=== PATIENT | female | born 1990 | race Caucasian/White ===

== ENCOUNTER 2019-12-18 17:57 | Emergency (ER) | payer OTHER, SELFPAY ==
[2018-09-29 09:57] VITALS: BMI 26.1
[2019-12-18 17:59] VITALS: BP 125/68; PULSE 94; RESP 16; TEMP 36.9; O2SAT 99; BMI 25.7
--- NOTE | 2019-12-18 18:09 | RAD_ITS ---
STUDY: X-RAY CHEST REASON FOR EXAM: Female, 29 years old. Diarrhea, low fever, cough. TECHNIQUE: Single frontal view of the chest. COMPARISON: None. FINDINGS: The lungs are clear and expanded. There is no demonstrated pleural abnormality. Normal size heart. Normal mediastinum and juan. Normal visualized pulmonary arteries. Normal visualized aortic arch and descending thoracic aorta. Normal visualized thoracic spine. Normal visualized ribs, clavicles, and shoulders. There is no demonstrated abnormality of the visualized soft tissue structures of the upper abdomen. RAD/Chest 1 View (Portable) IMPRESSION: Normal x-ray examination of the chest. Electronically Signed: Paulino Villanueva MD at 19:22 EDT Tel , Service support ,
--- NOTE | 2019-12-18 18:19 | ED.DCSUM_ITS ---
History of Present Illness Chief Complaint: Abd Pain Informant: Patient Onset: Today Context: Gradual Onset Timing: Continuous Current Severity: Moderate Maximum Severity: Moderate Narrative: The patient is an otherwise healthy 29-year-old female that presents to the emergency department due to COVID concern. Patient states that she woke this morning. She had fever and chills. She states she is had a scant cough. She has had some abdominal cramping and loose watery diarrhea. She states she is had about 5 episodes of nonbloody diarrhea. Patient is otherwise healthy. She is no history of immunosuppression. She is otherwise been in her normal state of health. Prior similar symptoms: No Recent Illness/Hospitalization: No Past Medical History - Allergies and Home Meds Allergies/Adverse Reactions: Allergies No Known Allergies Allergy (Unverified 12/18/19 18:03) Primary Care Physician: Care Physician,No Primary [Primary Care Provider] - Prior records reviewed: Yes Past Medical History: None Surgical History: no surgical history Smoking Status: Never smoker Review of Systems General: Reports: Fever, Malaise. Denies: Chills, Sweats Eyes: Denies: Visual changes - bilaterally, Diplopia ENT: Denies: Rhinorrhea, Sore throat Cardiovascular: Denies: Chest pain, Palpitations Respiratory: Denies: Dyspnea, Cough, Dyspnea on exertion Gastrointestinal: Reports: Nausea, Diarrhea. Denies: Abdominal pain, Vomiting, Melena, Hematochezia Genitourinary: Denies: Dysuria, Hematuria, Frequency Musculoskeletal: Denies: Back pain, Extremity Pain Skin: Denies: Rash, Wounds Neurological: Denies: Headache, Weakness, Numbness Physical Exam Vital Signs/Narrative: Vital Signs Temp Pulse Resp BP Pulse Ox 12/18/19 17:59 98.5 F 94 16 125/68 H 99 Inital Vital Signs reviewed: Yes General: Well nourished, Well developed, No Acute Distress Head: Normocephalic, Atraumatic Eyes: Perrl, EOMI ENT: Moist mucous membranes, No rhinorrhea Neck: Supple, Nontender Cardiovascular: Regular rate, Regular rhythm, No murmurs Respiratory: No distress, CTA bilaterally, Chest nontender Abdomen: Soft, Nontender, Nondistended, Normal bowel sounds Back: Nontender, Normal Inspection Extremities: Nontender, No edema Skin: Normal color, No rash Neurological: Alert, Oriented x3, Cranial nerves II-XII grossly intact, Normal Strength, Normal Sensation Psychological: Normal affect, Normal Mood Diagnostic/Tx/Re-eval Clinical Impression(s) from Imaging Studies Chest X-Ray 12/18/19 18:09 IMPRESSION: Normal x-ray examination of the chest. Electronically Signed: Paulino Villanueva MD at 19:22 EDT Tel , Service support , Abnormal Lab Results 12/18/19 12/18/19 12/18/19 18:30 18:30 18:30 WBC 5.6 RBC 4.93 Hgb 14.2 Hct 43.0 MCV 87.2 MCH 28.8 MCHC 33.0 RDW Std Deviation 40.9 RDW Coeff of Esther 13.1 Plt Count 176 MPV 9.5 Immature Gran % (Auto) 0.400 Neut % (Auto) 91.9 H Lymph % (Auto) 4.3 L [place] % (Auto) 2.5 Eos % (Auto) 0.5 Baso % (Auto) 0.4 Absolute Neuts (auto) 5.2 Absolute Lymphs (auto) 0.24 L Nucleated RBC % 0 Differential Comment SCANNED Sodium 136 Potassium 3.2 L Chloride 105 Carbon Dioxide 22.0 Anion Gap 9 BUN 18 Creatinine 1.22 H Estim Creat Clear Calc 61.22 Est GFR (MDRD) Af Amer 67 Est GFR (MDRD) Non-Af 55 L BUN/Creatinine Ratio 14.8 Glucose 105 Calcium 8.5 Total Bilirubin 1.30 H AST 32 ALT 25 Alkaline Phosphatase 47 Total Protein 8.1 Albumin 4.1 Globulin 4.0 Albumin/Globulin Ratio 1.0 Serum , Qual NEGATIVE COVID-19 (ROSMERY) 12/18/19 19:00 WBC RBC Hgb Hct MCV MCH MCHC RDW Std Deviation RDW Coeff of Esther Plt Count MPV Immature Gran % (Auto) Neut % (Auto) Lymph % (Auto) [place] % (Auto) Eos % (Auto) Baso % (Auto) Absolute Neuts (auto) Absolute Lymphs (auto) Nucleated RBC % Differential Comment Sodium Potassium Chloride Carbon Dioxide Anion Gap BUN Creatinine Estim Creat Clear Calc Est GFR (MDRD) Af Amer Est GFR (MDRD) Non-Af BUN/Creatinine Ratio Glucose Calcium Total Bilirubin AST ALT Alkaline Phosphatase Total Protein Albumin Globulin Albumin/Globulin Ratio Serum , Qual COVID-19 (ROSMERY) Negative - Medical Decision Making The patient presents with abdominal cramping, low-grade fever, chills, and diarrhea. She is concerned for COVID exposure. IV was established. Patient is given fluids and antiemetics with improvement of her symptoms. Screening labs were obtained. These are relatively unremarkable. She does have a mild elevation of her bilirubin. She does have very minimal elevation of her creatinine but it was still within normal limits. Patient was given fluids. Urine was obtained. There was no evidence of infection or . Chest x- ray was unremarkable for acute infiltrate.. Patient's COVID was negative. At this point, I do suspect this may be just a viral enteritis. I will treat the patient supportively. She was counseled on concerning symptoms and reevaluation. She is comfortable with this plan of care and will be discharged. Impression 1. Concern for COVID-19 infection 2. Viral enteritis ED Disposition - Plan for ED Patient: Instructions: ED Diarrhea Viral Prescriptions: Ondansetron [Zofran Odt] 4 mg PO Q8H PRN PRN #10 tab PRN Reason: Nausea Prescription Printed Referrals: Care Physician,No Primary [Primary Care Provider] -
[2019-12-18 19:04] LABS: Absolute Lymphocyte Count 0.24 X10^3/uL (0.83-4.51); Absolute Neutrophil Count 5.2 X10^3/uL (2.0-7.7); Basophil# 0.02 X10^3/uL; Basophil% 0.4 % (0-1); Eosinophil# 0.03 X10^3/uL; Eosinophils% 0.5 % (0-5); Hemoglobin 14.2 g/dL (12.0-15.0); Lymphocyte # 0.24 X10^3/ul (4.0); Lymphocyte % 4.3 % (19-41); Mean Corpuscular Hgb 28.8 pg (27.0-32.0); Mean Corpuscular Volume 87.2 fL (81-99); Mean Platelet Vol. 9.5 fl (6.2-12.0); Monocyte# 0.14 X10^3/uL; Monocyte% 2.5 % (0-10); NRBC Flagged by Analyzer 0 % (0-5); Neutrophil # 5.19 X10^3/uL (2.7-7.7); Neutrophil % 91.9 % (47-70); POSITIVE DIFFERENTIAL YES; POSITIVE MORPHOLOGY YES; Platelet Count 176 K/mm3 (150-450); RBC Distribution Width CV 13.1 % (11.6-14.6); RBC Distribution Width SD 40.9 fl (35.1-43.9); Red Blood Count 4.93 M/mm3 (4.2-5.4); White Blood Count 5.6 K/mm3 (4.4-11.0)
[2019-12-18 19:06] LABS: Differential Indicated SCAN CRITERIA MET
[2019-12-18 19:23] LABS: Internal QC Validated? YES +Cl - CLEAR BKGD; Pregnancy, Serum, hCG Quali. NEGATIVE Negative
[2019-12-18 19:25] LABS: AST(SGOT) 32 U/L (15-37); Alanine Aminotransfer ALT/SGPT 25 U/L (13-56); Albumin, Serum 4.1 g/dL (3.2-5.0); Alkaline Phosphatase 47 U/L (45-117); Anion Gap 9 (5-15); BUN 18 mg/dL (7-18); BUN/Creat Ratio 14.8 RATIO (10-20); Calcium,Total 8.5 mg/dL (8.5-10.1); Chloride 105 mmol/L (98-107); Creatinine, Serum 1.22 mg/dL (0.55-1.02); EST Glomerular Filtration Rate 55 mL/min (>60); Est Glom Filt Rate - Afr Amer 67 mL/min (>60); Estimated Creatinine Clearance 61.22 ml/min; Glucose 105 mg/dL (74-106); Potassium 3.2 mmol/L (3.5-5.1); Protein, Total 8.1 g/dL (6.4-8.2); Sodium Level 136 mmol/L (136-145)
[2019-12-18 19:52] LABS: Differential Comment SCANNED
[2019-12-18 20:39] LABS: Probe Check PASS; Specimen Processing Control PASS
[2019-12-18 20:58] VITALS: BP 121/65; PULSE 85; RESP 18; O2SAT 100
== END 2019-12-18 20:59 | disposition home or self-care (01) ==
LOC: ED 18:16
PROVIDERS: Emergency Provider Emergency Medicine
DX: A08.4 Viral intestinal infection, unspecified (principal); R50.9 Fever, unspecified; R05 Cough
CPT/HCPCS: 71045; 80053; 84703; 85025; 87040; 87633; 87635; 96360; 99285; G2023; J7030; A4216; U0003